=== PATIENT | male | born 1950 | race Caucasian/White ===

== ENCOUNTER 2020-10-15 15:07 | Emergency (ER) | payer OTHER ==
[~2020-10-15 15:07] MED LIST: ASPIRIN EC81 MG PO; LASIX40 MG PO; LEVEMIR VI100 UNITS/ SC; LIPITOR40 MG PO; LOPRESSOR25 MG PO; MUCINEX 600MG600 MG PO; PREDNISONE 10MG10 MG PO; PRINIVIL10 MG PO; SYMBICORT 80-10.2 GM INH; SYNTHROID50 MCG PO; VITAMIN D50000 UNIT SC
[2020-10-15] MEDS ORDERED: K-DUR20 MEQ PO (16:15)
[2020-10-15 17:04] LABS: BASOPHIL 0.7 % (0-2); EOSINOPHIL 0.9 % (0-7); HCT 37.5 % (42.0-52.0); HGB 12.7 g/dl (13.2-18.0); MCH 33.4 pg (25.0-31.0); MCHC 33.9 g/dL (32.0-36.0); MCV 98.7 fL (78.0-100.0); MONOCYTE 11.1 % (0-12); MPV 12.3 fL (6.0-9.5); NEUTROPHIL 76.9 % (41-80); NRBC 0; PLT 213 K/uL (150-400); RDW 14.1 % (11.5-14.0); WBC 11.2 K/uL (4.0-10.5)
[2020-10-15 17:23] LABS: ALBUMIN 3.7 g/dL (3.4-5.0); BILIRUBIN - TOTAL 1.4 mg/dL (0.2-1.0); BUN/CREAT RATIO (CALC) 35.4 RATIO; CREATININE 0.79 mg/dL (0.67-1.17); GLOBULIN (CALCULATION) 4.1 g/dL; POTASSIUM 3.8 mmol/L (3.5-5.1); TOTAL PROTEIN 7.8 g/dL (6.4-8.2)
[2020-10-15 17:52] LABS: LACTIC ACID 1.1 mmol/L (0.4-1.9)
[2020-10-15 18:42] LABS: BILIRUBIN NEGATIVE (NEGATIVE); BLOOD NEGATIVE Ery/uL (NEGATIVE); CLARITY CLEAR (CLEAR); COLOR YELLOW (YELLOW); GLUCOSE (U) NORMAL (NORMAL); LEUKOCYTES NEGATIVE Leu/uL (NEGATIVE); NITRITE NEGATIVE (NEGATIVE); PROTEIN TRACE (LOW) mg/dL (NEGATIVE); SPECIFIC GRAVITY 1.025 (1.001-1.030); UROBILINOGEN 0.2 mg/dL (0.2-1.0)
[2020-10-15 18:58] LABS: URINARY WBC RARE
[2020-10-15 18:59] LABS: AMORPHOUS URATES CRYSTALS MODERATE; BACTERIA TRACE
== END 2020-10-15 23:30 | disposition other institution (70) ==
LOC: FER 15:07
PROVIDERS: Nurse Practitioner Family
DX: K56.2 Volvulus (principal); E11.9 Type 2 diabetes mellitus without complications; J44.9 Chronic obstructive pulmonary disease, unspecified; Z20.822 Contact with and (suspected) exposure to COVID-19
CPT/HCPCS: 36415; 74018; 80053; 81001; 83605; 85025; J2270; J2405; J7030; Q9967; U0002